=== PATIENT | male | born 1960 | race Caucasian/White ===

== ENCOUNTER 2021-06-17 08:38 | Day surgery (SDC) | payer OTHER ==
[~2021-06-17] VITALS: Ht 180.3 cm; Wt 101.0 kg
[~2021-06-17 08:38] MED LIST: ACETAMINOPHEN 500 MG TABLET PO PRN; BUPIVACAINE-EPI 0.25%-1:200000 MPF 30 ML VIAL. ONE; DEXAMETHASONE SOD PHOS 4 MG/ML VIAL ONE; HYDROmorphone 2 MG/ML VIAL IVP PRN; IV RINGERS,LACTATED 1000ML 1,000 ML IV SCH; LIDOCAINE 2% PF 5 ML VIAL. ONE; MINERAL OIL for SURGERY 10 ML VIAL. MC ONE; MORPHINE SULFATE 2 MG/ML INJ. IVP PRN; ONDANSETRON PF 4 MG/2 ML VIAL. ONE; PROCHLORPERAZINE 10 MG/2 ML VIAL. IVP PRN; PROPOFOL 10 MG/ML (20ML) VIAL. IV ONE; ROCURONIUM 50 MG/5 ML VIAL. ONE; fentaNYL PF VIAL 100 MCG/2 ML VIAL IVP PRN; fentaNYL PF VIAL 100 MCG/2 ML VIAL ONE
[2021-06-17 09:02] VITALS: BP 191/96
[2021-06-17] MEDS ORDERED: METF500T16 PO (09:11)
[2021-06-17] MEDS ORDERED: EZET10TA20 PO (09:11)
[2021-06-17] MEDS ORDERED: LOSA100T14 PO (09:11)
[2021-06-17] MEDS ORDERED: METO50TA4 PO (09:11)
[2021-06-17] MEDS ORDERED: TAMS0.4C97 PO (09:11)
--- NOTE | 2021-06-17 09:33 | PDOC1 ---
History and Physical Date of Admission Date of Admission DATE: 06/17/21 TIME: 09:30 Identification/Chief Complaint Chief Complaint Bilateral groin pain Source Source: Patient History of Present Illness History of Present Illness 61-year-old male with complaints of bilateral groin pain especially with activity lifting walking been present for several years and he describes a painful bulge at his umbilicus. Past Medical History Cardiovascular: CAD, HTN, Hyperlipidemia, Other (Carotid stenosis) Pulmonary: No pertinent hx GI: No pertinent hx Heme/Onc: No pertinent hx Hepatobiliary: No pertinent hx Psych: No pertinent hx Rheumatologic: No pertinent hx Infectious disease: No pertinent hx ENT: No pertinent hx Renal/: No pertinent hx Endocrine: No pertinent hx Dermatology: No pertinent hx Past Surgical History Past Surgical History: CABG, Other (Carotid endarterectomy, cardiac stents) Family History Family History: No Significant Social History Smoke: No ALCOHOL: none Drugs: None Current Medications Current Medications Current Medications Fentanyl Citrate (Fentanyl 2ml Vial) 25 mcg PRN Q5MIN PRN IVP MILD PAIN 1-3; Start 06/17/21 at 06:00; Stop 06/18/21 at 05:59 Fentanyl Citrate (Fentanyl 2ml Vial) 50 mcg PRN Q5MIN PRN IVP MODERATE PAIN 4- 6; Start 06/17/21 at 06:00; Stop 06/18/21 at 05:59 Morphine Sulfate (Morphine Sulfate) 1 mg PRN Q10MIN PRN IVP SEVERE PAIN 7-10; Start 06/17/21 at 06:00; Stop 06/18/21 at 05:59 Ringer's Solution 1,000 ml @ 30 mls/hr Q24H IV Last administered on 06/17/21at 09:08; Start 06/17/21 at 06:00; Stop 06/17/21 at 17:59 Hydromorphone HCl (Dilaudid) 0.5 mg PRN Q10MIN PRN IVP SEVERE PAIN 7-10, 2nd CHOICE; Start 06/17/21 at 06:00; Stop 06/18/21 at 05:59 Prochlorperazine Edisylate (Compazine) 5 mg PACU PRN PRN IVP NAUSEA, MRX1; Start 06/17/21 at 06:00; Stop 06/18/21 at 05:59 Cefazolin Sodium/ Dextrose 50 ml @ 100 mls/hr 1X PREOP PRN IV PRIOR TO PROCEDURE; Start 06/17/21 at 06:00; Stop 06/17/21 at 18:00 Acetaminophen (Tylenol) 1,000 mg 1X PREOP PRN PO PRIOR TO PROCEDURE Last administered on 06/17/21at 09:11; Start 06/17/21 at 06:15 Mineral Oil (Muri-Lube) 10 ml STK-MED ONCE MC ; Start 06/17/21 at 07:18; Stop 06/17/21 at 07:18; Status DC Bupivacaine HCl/ Epinephrine Bitart (Sensorcaine-Epi 0.25%-1:086751 Mpf) 30 ml STK-MED ONCE .ROUTE ; Start 06/17/21 at 07:19; Stop 06/17/21 at 07:19; Status DC Propofol (Diprivan) 200 mg STK-MED ONCE IV ; Start 06/17/21 at 08:36; Stop 06/17/21 at 08:36; Status DC Lidocaine HCl (Lidocaine Pf 2% Vial) 5 ml STK-MED ONCE .ROUTE ; Start 06/17/21 at 08:36; Stop 06/17/21 at 08:36; Status DC Dexamethasone Sodium Phosphate (Decadron) 4 mg STK-MED ONCE .ROUTE ; Start 06/17/21 at 08:36; Stop 06/17/21 at 08:36; Status DC Ondansetron HCl (Zofran) 4 mg STK-MED ONCE .ROUTE ; Start 06/17/21 at 08:36; Stop 06/17/21 at 08:36; Status DC Fentanyl Citrate (Fentanyl 2ml Vial) 100 mcg STK-MED ONCE .ROUTE ; Start 06/17/21 at 08:36; Stop 06/17/21 at 08:37; Status DC Rocuronium [place] (Zemuron) 50 mg STK-MED ONCE .ROUTE ; Start 06/17/21 at 08:37; Stop 06/17/21 at 08:37; Status DC Active Scripts Active Reported Flomax (Tamsulosin Hcl) 0.4 Mg Cap.er.24h 1 Cap PO DAILY Toprol XL (Metoprolol Succinate) 50 Mg Tab.er.24h 75 Mg PO DAILY Metformin Hcl 500 Mg Tablet 250 Mg PO BIDWMEALS Losartan Potassium 100 Mg Tablet 100 Mg PO DAILY Zetia (Ezetimibe) 10 Mg Tablet 1 Tab PO DAILY 30 Days Allergies Allergies: Coded Allergies: lisinopril (Verified Allergy, Intermediate, 06/16/21) simvastatin (Verified Allergy, Intermediate, 06/16/21) ROS Genitourinary: YES Other (Groin pain) Physical Exam General: Alert, Oriented X3, Cooperative, No acute distress HEENT: Atraumatic, EOMI Lungs: Clear to auscultation, Normal air movement Heart: RRR, no murmurs Abdomen: Normal bowel sounds, Soft, Other (Small bulge at the umbilicus tender to palpation) Rectal Exam: not examined PELVIC: Other (Bilateral small inguinal hernias reducible mildly tender to palpation) Vitals Vitals Vital Signs Date Time Temp Pulse Resp B/P (MAP) Pulse Ox O2 Delivery O2 Flow Rate FiO2 06/17/21 09:07 98.0 64 20 191/96 98 Room Air 98.0 Labs Labs Laboratory Tests Test 06/17/21 09:06 Glucose (Fingerstick) 97 mg/dL (70-99) Laboratory Tests Test 06/17/21 09:06 Glucose (Fingerstick) 97 mg/dL (70-99) VTE Prophylaxis Ordered VTE Prophylaxis Devices: Yes VTE Pharmacological Prophylaxi: Contraindicated Assessment/Plan Assessment/Plan Bilateral inguinal hernias plan robotic assisted laparoscopic bilateral inguinal hernia repair. Umbilical hernia plan open umbilical hernia repair Justifications for Admission Other Justification TATYANA MCDANIEL MD Jun 17, 2021 09:33
[2021-06-17] MEDS ORDERED: GLYCOPYRROLATE 1 MG/5 ML VIAL. ONE (10:16)
[2021-06-17] MEDS ORDERED: fentaNYL PF VIAL 100 MCG/2 ML VIAL ONE (10:20)
[2021-06-17] MEDS ORDERED: ROCURONIUM 50 MG/5 ML VIAL. ONE (10:50)
[2021-06-17] MEDS ORDERED: NEOSTIGMINE METHYLSULFATE 5 MG/5 ML SYRINGE. ONE (11:08)
--- NOTE | 2021-06-17 11:28 | PDOC4 ---
Operative Note Operative Note Date: 2020 at 1124 Preoperative diagnosis: Bilateral inguinal hernias and umbilical hernia Postoperative diagnosis: Same Procedure: Robotic assisted laparoscopic bilateral inguinal hernia repair with mesh and open umbilical hernia repair Surgeon: Jordan Specimen: None Dictation: Patient is a 61-year-old gentleman with bilateral groin pain and inguinal hernias he also has an umbilical hernia that is uncomfortable. Procedure of robotic assisted laparoscopic bilateral inguinal hernia repairs with mesh was explained to the patient detail risk-benefit were also discussed including bleeding infection injury to intra-abdominal contents possible necessitating further open operations alternatives to this procedure also discussed with patient who seemed to understand and gave both verbal and written consent to have procedure performed. Patient was taken to the operating room placed in the supine position general anesthesia was initiated once patient was sleeping intubated his abdomen was prepped and draped usual sterile fashion using ChloraPrep and area just above the umbilicus was injected with quarter percent Marcaine with epinephrine incision was made with a blade scalpel and a varies needle was placed within the abdomen creating pneumoperitoneum once this was complete 8 mm ventral port was placed in a millimeter da Bobbi camera is placed within the abdomen which was inspected was noted bilateral inguinal hernias. A 8 mm da Bobbi port was placed in the left midabdomen and an 8 mm da Bobbi port placed in the right midabdomen the da Bobbi robot was brought and docked all port sites surgeon went to the robotic console using a grasper and Endo Grabiel scissors the peritoneum on the right side was incised and a window propagated inferiorly reducing the hernia sac and contents there was quite large cord lipoma which was reduced with the hernia. Tensions were then turned to the left side which the peritoneum again was incised electrocautery and a window propagated inferiorly reducing all the hernia sac and contents as well as a very large cord lipoma on the left side. Large Bard 3D max mesh for both the right and left side were placed over the hernia defects and the peritoneum was then closed on both sides with a running 2 OV lock absorbable suture. Sutures removed from the abdomen once this was complete the surgeon went back to the operative field the da Bobbi robot was undocked from all port sites pneumoperitoneum reduced all ports were removed the incision just above the umbilicus was extended with 15 blade scalpel using electrocautery right hemostasis the umbilical hernia was excised down to the fascial defect the fascial defect was then closed with 2 [id number] 0 Vicryl suture. Skin was then all closed at all port sites with 4 subcuticular Monocryl Mastisol Steri-Strips and island dressings were applied. Patient was awakened and extubated in the operating room taken to recovery in stable condition all sponge instrument needle counts listed as correct estimated blood loss 10 mL. TATYANA MCDANIEL MD Jun 17, 2021 11:28
[2021-06-17] MEDS ORDERED: OXYC-325 PO (11:31)
--- NOTE | 2021-06-17 11:32 | DISCH ---
DISCHARGE INSTRUCTIONS Condition on Discharge Condition on Discharge: Stable Activity After Discharge Activity Instructions for Disc: Avoid exertion Other activity instructions: No lifting more than 20 pounds for 2 weeks Diet after Discharge Diet after Discharge: Regular Wound Incision Care Other wound/incision instructi: Caridad shower in 24 hours Contacting the after DC Call your doctor for: If your condition worsens Follow-Up Follow up with: Dr. Mcdaniel in 2 weeks TATYANA MCDANIEL MD Jun 17, 2021 11:32
[2021-06-17] MEDS ORDERED: HYDROcodone/APAP 5/325MG 1 TAB TABLET PO ONE (12:00)
[2021-06-17 12:28] VITALS: BP 134/96
== END 2021-06-17 12:59 | disposition home or self-care (01) ==
LOC: SURG 08:38
PROVIDERS: ATTEND Surgery
DX: K40.20 Bilateral inguinal hernia, without obstruction or gangrene, not specified as recurrent (principal); K42.9 Umbilical hernia without obstruction or gangrene; I25.10 Atherosclerotic heart disease of native coronary artery without angina pectoris; I11.0 Hypertensive heart disease with heart failure; I50.9 Heart failure, unspecified; E78.00 Pure hypercholesterolemia, unspecified; E11.9 Type 2 diabetes mellitus without complications; M19.90 Unspecified osteoarthritis, unspecified site; N40.0 Benign prostatic hyperplasia without lower urinary tract symptoms; G47.30 Sleep apnea, unspecified; Z79.899 Other long term (current) drug therapy; Z98.890 Other specified postprocedural states; Z88.8 Allergy status to other drugs, medicaments and biological substances
CPT/HCPCS: 49585; 49650; 82962; A4215; A4364; A4930; A6219; A6258; C1781; J0690; J1100; J2405; J2704; J2710; J3010; J3490; S2900; A4452; A4657